=== PATIENT | female | born 1995 | race Caucasian/White ===

== ENCOUNTER 2021-05-25 16:44 | Emergency (ER) | payer BC ==
[~2021-05-25] VITALS: Ht 175.3 cm; Wt 90.0 kg
[2021-05-25 16:59] VITALS: BP 111/72
--- NOTE | 2021-05-25 17:35 | NUR ---
PT GRACE'S XRAY AND EKG, PA NOTIFIED
== END 2021-05-25 18:08 | disposition home or self-care (01) ==
LOC: ER 16:45
DX: U07.1 COVID-19 (principal); R11.2 Nausea with vomiting, unspecified; R51.9 Headache, unspecified; R50.9 Fever, unspecified; Z88.8 Allergy status to other drugs, medicaments and biological substances
CPT/HCPCS: 71045; 93005; 99283